=== PATIENT | female | born 1950 | race African-American/Black ===

== ENCOUNTER 2023-08-01 15:06 | Inpatient (IN) | payer OTHER ==
[~2023-08-01] VITALS: Ht 157.5 cm; Wt 69.9 kg
[2023-08-01 15:07] VITALS: BP_SYST 100; BP_SYST 152; BP_DIAS 50; BP_DIAS 71; PULSE 77; RESP 18; TEMP 97.8; O2SAT 78; O2SAT 98
[2023-08-01] MEDS: cefTRIAXone 1,000 MG in DEXT 5% MINI-BAG PLUS 50 ML IV ONE (15:15)
[2023-08-01 16:01] LABS: BASOPHILS % (AUTO) 0.4 % (0.0-2.0); EOSINOPHILS # (AUTO) 0.1 K/uL (0-0.4); EOSINOPHILS % (AUTO) 1.2 % (0.0-4.0); HEMATOCRIT 24.6 % (36-48); HEMOGLOBIN 8.2 g/dL (12.0-16.0); LYMPHOCYTES # (AUTO) 2.6 K/uL (2.5-16.5); LYMPHOCYTES % (AUTO) 24.8 % (20.5-51.1); MEAN CORPUSCULAR HEMOGLOBIN 32 pg (27-31); MEAN CORPUSCULAR HGB CONC 34 g/dL (33-37); MEAN CORPUSCULAR VOLUME 95.7 fL (80-94); MONOCYTES # (AUTO) 0.6 K/uL (0.8-1.0); MONOCYTES % (AUTO) 5.5 % (1.7-9.3); NEUTROPHILS # (AUTO) 7.1 K/uL (1.8-7.7); NEUTROPHILS % (AUTO) 68.1 % (42.2-75.2); PLATELET COUNT (AUTO) 352 K/uL (140-450); RED BLOOD CELL COUNT(AUTO) 2.57 MIL/uL (4.20-5.40); RED CELL DISTRIBUTION WIDTH 15.4 % (11.6-13.7); WHITE BLOOD COUNT (AUTO) 10.4 K/uL (4.8-10.8)
[2023-08-01 16:15] LABS: ANION GAP 13.2 (8-16); CALCIUM 8.1 mg/dL (8.5-10.1); CARBON DIOXIDE 22.9 mmol/L (21-32); CHLORIDE 106 mmol/L (98-107); CREATININE 1.6 mg/dL (0.6-1.3); GLUCOSE 88 mg/dL (74-106); POTASSIUM 3.1 mmol/L (3.5-5.1); SODIUM SERUM 139 mmol/L (136-145); UREA NITROGEN, BLOOD 16 mg/dL (7-18)
[2023-08-01] MEDS ORDERED: cefTRIAXone 1,000 MG VIAL ONE (16:54)
[2023-08-01] MEDS: NACL 0.9% 1,000 ML IV SCH (16:57)
[2023-08-01 17:11] LABS: APPEARANCE,URINE CLEAR (CLEAR); BILIRUBIN,URINE NEGATIVE (NEGATIVE); BLOOD, URINE NEGATIVE (NEGATIVE); COLOR,URINE YELLOW (YELLOW); LEUKOCYTE ESTERASE ,URINE 1+ (NEGATIVE); NITRITE, URINE NEGATIVE (NEGATIVE); PROTEIN,URINE NEGATIVE (NEGATIVE); UGLUCOSE NEGATIVE (NEGATIVE); UROBILINOGEN,URINE 0.2 EU/dL (0.2 - 1)
[2023-08-01 17:28] LABS: RBC,URINE 0-5 /HPF (0-5)
[2023-08-01 17:29] LABS: BACTERIA,URINE 10-30 (MOD) /HPF (None Seen); SQUAMOUS EPITHELIAL CELL,UR 0-3 (FEW) /LPF (0-3 (FEW))
[2023-08-01 17:39] LABS: FLU A ANTIGEN negative (NEGATIVE); FLU B ANTIGEN NEGATIVE (NEGATIVE)
[2023-08-01] MEDS ORDERED: LACT-58 PO (20:38)
[2023-08-01] MEDS ORDERED: MAGN400S60 PO (20:38)
[2023-08-01] MEDS ORDERED: ATRN INH (20:38)
[2023-08-01] MEDS ORDERED: MULT-2171 PO (20:38)
[2023-08-01] MEDS ORDERED: ASCO500T95 PO (20:38)
[2023-08-01] MEDS ORDERED: [UNRECOGNIZED DRUG - CODE] PO (20:38)
[2023-08-01] MEDS ORDERED: BISA-213 RC (20:38)
[2023-08-01] MEDS ORDERED: TIZA4CAP PO (20:38)
[2023-08-01] MEDS ORDERED: METO50TE2 PO (20:38)
[2023-08-01] MEDS ORDERED: NUTR30LI7 PO (20:38)
[2023-08-01] MEDS ORDERED: ACET-2619 PO (20:38)
[2023-08-01] MEDS ORDERED: CLON0.1T16 PO (20:38)
[2023-08-01] MEDS ORDERED: ATOR20TA PO (20:38)
[2023-08-01] MEDS ORDERED: SENN-72 PO (20:38)
[2023-08-01] MEDS ORDERED: PIPE1SOL IV (20:38)
[2023-08-01] MEDS ORDERED: LISI-486 PO (20:38)
[2023-08-01] MEDS ORDERED: PIPERACILLIN/TAZOBACTAM 3.375 GM in DEXTROSE 5% 50 ML IV SCH (21:00)
[2023-08-01 21:12] VITALS: PULSE 96; RESP 18; O2SAT 95
[2023-08-01] MEDS: PIPERACILLIN/TAZOBACTAM 2.25 GM VIAL IV ONE (21:57)
[2023-08-01] MEDS: PIPERACILLIN/TAZOBACTAM 2.25 GM in DEXTROSE 5% 50 ML IV SCH (21:58)
[2023-08-01] MEDS: METOPROLOL 25 MG TAB PO ONE (22:56)
[2023-08-01] MEDS: KCL 20 MEQ IN 100 mL PREMIX 200 ML IV ONE (23:30)
[2023-08-02] VITALS (10 sets, daily range): BP systolic 140–171; BP diastolic 61–89; PULSE 65–102; RESP 16–20; TEMP 97–98.3; O2SAT 95–100
[2023-08-02 05:01] LABS: BASOPHILS # (AUTO) 0.1 K/uL (0.00-0.22); BASOPHILS % (AUTO) 0.4 % (0.0-2.0); EOSINOPHILS # (AUTO) 0.1 K/uL (0-0.4); EOSINOPHILS % (AUTO) 0.9 % (0.0-4.0); HEMATOCRIT 32.3 % (36-48); HEMOGLOBIN 10.8 g/dL (12.0-16.0); LYMPHOCYTES # (AUTO) 3.4 K/uL (2.5-16.5); MEAN CORPUSCULAR HEMOGLOBIN 32 pg (27-31); MEAN CORPUSCULAR HGB CONC 33 g/dL (33-37); MEAN CORPUSCULAR VOLUME 94.8 fL (80-94); MONOCYTES # (AUTO) 0.8 K/uL (0.8-1.0); MONOCYTES % (AUTO) 4.6 % (1.7-9.3); NEUTROPHILS # (AUTO) 12.5 K/uL (1.8-7.7); NEUTROPHILS % (AUTO) 74.1 % (42.2-75.2); PLATELET COUNT (AUTO) 505 K/uL (140-450); RED BLOOD CELL COUNT(AUTO) 3.41 MIL/uL (4.20-5.40); RED CELL DISTRIBUTION WIDTH 15.7 % (11.6-13.7); WHITE BLOOD COUNT (AUTO) 16.9 K/uL (4.8-10.8)
[2023-08-02 05:18] LABS: ANION GAP 11.8 (8-16); CALCIUM 9.2 mg/dL (8.5-10.1); CARBON DIOXIDE 24.6 mmol/L (21-32); CHLORIDE 106 mmol/L (98-107); CREATININE 1.4 mg/dL (0.6-1.3); GLUCOSE 74 mg/dL (74-106); POTASSIUM 4.4 mmol/L (3.5-5.1); SODIUM SERUM 138 mmol/L (136-145); UREA NITROGEN, BLOOD 12 mg/dL (7-18)
[2023-08-02] MEDS: PIPERACILLIN/TAZOBACTAM 2.25 GM VIAL IV ONE (05:35)
[2023-08-02] MEDS: METOPROLOL 25 MG TAB PO SCH (09:23)
[2023-08-02] MEDS ORDERED: bisacodyL 10 MG SUPP RC PRN (09:30)
[2023-08-02] MEDS ORDERED: HYDROcodone/APAP 7.5/325 MG 1 TAB PO PRN (09:30)
[2023-08-02] MEDS ORDERED: MAGNESIUM HYDROXIDE 2400 MG/30 ML UDC PO PRN (09:30)
[2023-08-02] MEDS ORDERED: ONDANSETRON 4 MG/2 ML VIAL IVP PRN (09:30)
[2023-08-02] MEDS ORDERED: ACETAMINOPHEN 325 MG TAB PO PRN (09:30)
[2023-08-02 11:21] LABS: INR 1.11 (0.8-1.2); PARTIAL THROMBOPLASTIN TIME 22.5 secs (22-35.6); PROTHROMBIN TIME 11.5 secs (10.8-13.4)
[2023-08-02 11:33] LABS: FREE T4 (FREE THYROXINE) 0.98 ng/dL (0.76-1.46); LACTIC ACID 1.9 mmol/L (0.4-2.0); THYROID STIMULATING HORMONE 1.83 uIU/mL (0.34-3.74)
[2023-08-02 11:49] LABS: CHOL/HDL RATIO 3.2 (1-4.5)
[2023-08-02] MEDS: CLONIDINE HYDROCHLORIDE 0.1 MG TAB PO PRN (19:29)
[2023-08-02] MEDS ORDERED: NON-FORMULARY ITEM (Lactulose 30 ML) PO SCH (21:00)
[2023-08-02] MEDS: DOCUSATE SODIUM 100 MG GELCAP PO SCH (21:33)
[2023-08-02] MEDS: LACTULOSE 20 GM/30 ML UDC PO SCH (21:33)
[2023-08-03] VITALS (8 sets, daily range): BP systolic 130–152; BP diastolic 63–80; PULSE 64–93; RESP 17–18; TEMP 97.8–98.3; O2SAT 95–99
[2023-08-03] MEDS ORDERED: hydrALAZINE 25 MG TAB PO PRN (01:50)
[2023-08-03 05:11] LABS: ANION GAP 8.2 (8-16); CALCIUM 9.3 mg/dL (8.5-10.1); CARBON DIOXIDE 28.6 mmol/L (21-32); CHLORIDE 104 mmol/L (98-107); CREATININE 1.3 mg/dL (0.6-1.3); GLUCOSE 91 mg/dL (74-106); POTASSIUM 3.8 mmol/L (3.5-5.1); SODIUM SERUM 137 mmol/L (136-145); UREA NITROGEN, BLOOD 12 mg/dL (7-18)
[2023-08-03 05:17] LABS: MAGNESIUM 1.7 mg/dL (1.8-2.4); PHOSPHORUS 3.4 mg/dL (2.5-4.9)
[2023-08-03 05:52] LABS: BASOPHILS # (AUTO) 0.1 K/uL (0.00-0.22); BASOPHILS % (AUTO) 0.4 % (0.0-2.0); EOSINOPHILS # (AUTO) 0.2 K/uL (0-0.4); EOSINOPHILS % (AUTO) 1.6 % (0.0-4.0); HEMATOCRIT 30.9 % (36-48); HEMOGLOBIN 10.3 g/dL (12.0-16.0); LYMPHOCYTES # (AUTO) 3.3 K/uL (2.5-16.5); LYMPHOCYTES % (AUTO) 22.6 % (20.5-51.1); MEAN CORPUSCULAR HEMOGLOBIN 31 pg (27-31); MEAN CORPUSCULAR HGB CONC 33 g/dL (33-37); MEAN CORPUSCULAR VOLUME 94.3 fL (80-94); MONOCYTES # (AUTO) 0.9 K/uL (0.8-1.0); MONOCYTES % (AUTO) 6.4 % (1.7-9.3); NEUTROPHILS # (AUTO) 10.1 K/uL (1.8-7.7); PLATELET COUNT (AUTO) 454 K/uL (140-450); RED BLOOD CELL COUNT(AUTO) 3.28 MIL/uL (4.20-5.40); RED CELL DISTRIBUTION WIDTH 15.4 % (11.6-13.7); WHITE BLOOD COUNT (AUTO) 14.6 K/uL (4.8-10.8)
[2023-08-03] MEDS: IPRATROPIUM 0.02% 0.5 MG/2.5 ML NEBU INH SCH (08:20)
[2023-08-03] MEDS: PANTOPRAZOLE 40 MG INJ VIAL IVP SCH (09:00)
[2023-08-03] MEDS ORDERED: NON-FORMULARY ITEM (Multivitamin (Multiple Vitamins) 1 TAB) PO SCH (09:00)
[2023-08-03] MEDS ORDERED: LOSARTAN 50 MG TAB PO SCH (09:00)
[2023-08-03] MEDS ORDERED: OLMESARTAN MED PO SCH (09:00)
[2023-08-03] MEDS ORDERED: AMLODIPINE BES PO SCH (09:00)
[2023-08-03] MEDS ORDERED: [UNRECOGNIZED DRUG - OTHER] PO SCH (09:00)
[2023-08-03] MEDS: ATORVASTATIN 20 MG TAB PO SCH (10:26)
[2023-08-03] MEDS: SENNA 8.6 MG TAB PO SCH (10:27)
[2023-08-03] MEDS: MULTIVITAMIN 1 TAB PO SCH (10:27)
[2023-08-03] MEDS: METOPROLOL SUCCINATE 50 MG TABER PO SCH (10:28)
[2023-08-03] MEDS: amLODIPine 5 MG TAB PO SCH (10:29)
[2023-08-03] MEDS: lisinopriL 10 MG TAB PO SCH (10:30)
[2023-08-03] MEDS: ASCORBIC ACID 500 MG TAB PO SCH (10:30)
[2023-08-04] VITALS: BP 140/85; PULSE 75; RESP 18; TEMP 98.5; O2SAT 98
[2023-08-04 06:15] LABS: BASOPHILS % (AUTO) 0.3 % (0.0-2.0); EOSINOPHILS # (AUTO) 0.3 K/uL (0-0.4); EOSINOPHILS % (AUTO) 2.1 % (0.0-4.0); HEMATOCRIT 29.5 % (36-48); HEMOGLOBIN 9.8 g/dL (12.0-16.0); LYMPHOCYTES # (AUTO) 3.4 K/uL (2.5-16.5); LYMPHOCYTES % (AUTO) 26.1 % (20.5-51.1); MEAN CORPUSCULAR HEMOGLOBIN 31 pg (27-31); MEAN CORPUSCULAR HGB CONC 33 g/dL (33-37); MEAN CORPUSCULAR VOLUME 94.1 fL (80-94); MONOCYTES # (AUTO) 0.9 K/uL (0.8-1.0); MONOCYTES % (AUTO) 6.8 % (1.7-9.3); NEUTROPHILS # (AUTO) 8.5 K/uL (1.8-7.7); NEUTROPHILS % (AUTO) 64.7 % (42.2-75.2); PLATELET COUNT (AUTO) 451 K/uL (140-450); RED BLOOD CELL COUNT(AUTO) 3.13 MIL/uL (4.20-5.40); RED CELL DISTRIBUTION WIDTH 15.9 % (11.6-13.7); WHITE BLOOD COUNT (AUTO) 13.1 K/uL (4.8-10.8)
[2023-08-04 06:41] LABS: ANION GAP 12.4 (8-16); CARBON DIOXIDE 24.5 mmol/L (21-32); CHLORIDE 106 mmol/L (98-107); CREATININE 1.2 mg/dL (0.6-1.3); GLUCOSE 84 mg/dL (74-106); POTASSIUM 3.9 mmol/L (3.5-5.1); SODIUM SERUM 139 mmol/L (136-145); UREA NITROGEN, BLOOD 11 mg/dL (7-18)
[2023-08-04 06:45] LABS: MAGNESIUM 1.9 mg/dL (1.8-2.4); PHOSPHORUS 3.4 mg/dL (2.5-4.9)
[2023-08-04] MEDS ORDERED: PIPE1PDS20 IV (10:26)
[2023-08-04] MEDS ORDERED: AMLO-3 PO (10:26)
== END 2023-08-04 10:42 | DRG 871 ==
LOC: MED 15:06 → MTU 17:04
DX: A41.9 Sepsis, unspecified organism (principal); J69.0 Pneumonitis due to inhalation of food and vomit; J96.00 Acute respiratory failure, unspecified whether with hypoxia or hypercapnia; N17.0 Acute kidney failure with tubular necrosis; I10 Essential (primary) hypertension; E78.5 Hyperlipidemia, unspecified; K59.00 Constipation, unspecified; F03.90 Unspecified dementia, unspecified severity, without behavioral disturbance, psychotic disturbance, mood disturbance, and anxiety; I34.2 Nonrheumatic mitral (valve) stenosis; E86.0 Dehydration; E87.6 Hypokalemia; L89.151 Pressure ulcer of sacral region, stage 1; Z20.822 Contact with and (suspected) exposure to COVID-19; D63.8 Anemia in other chronic diseases classified elsewhere; Z74.01 Bed confinement status
CPT/HCPCS: 36415; 71045; 80048; 81001; 82140; 82150; 83036; 83605; 83690; 83735; 83880; 84100; 84439; 84443; 84484; 85025; 85610; 85730; 87040; 87081; 87086; 92526; 93005; 94640; 96374; 99285; C9113; J0696; J2543; J3480; J7060; J7644; Q0092